=== PATIENT | female | born 1965 | race Caucasian/White ===

== ENCOUNTER 2017-10-12 14:00 | Outpatient (CLI) | payer BC ==
[~2017-10-12] VITALS: Ht 160 cm; Wt 70.3 kg
[~2017-10-12 14:00] MED LIST: MNTL10T PO; NFPRILOC40 PO; TPR25T PO; TRAM100T28 PO
[2017-10-12] MEDS ORDERED: MONT10TA24 PO (16:02)
[2017-10-12] MEDS ORDERED: OMEP40CA36 PO (16:02)
== END 2017-10-12 16:03 ==
LOC: PREOP 14:00
PROVIDERS: ATTEND Surgery
DX: Z01.818 Encounter for other preprocedural examination (principal); K21.9 Gastro-esophageal reflux disease without esophagitis; R11.0 Nausea; R13.10 Dysphagia, unspecified

== ENCOUNTER 2017-10-18 07:45 | Day surgery (SDC) | payer BC ==
[~2017-10-18] VITALS: Ht 160 cm; Wt 70.3 kg
[~2017-10-18 07:45] MED LIST changes: +MONT10TA24 PO; +OMEP40CA36 PO
--- OUTSIDE RECORDS SUMMARY | 2017-10-18 07:50 | XMS REPORT | Clinical Summary ---
Author Author [facility] Organization [facility] Address Unknown Phone Unavailable Care Team Providers Care Nursing Home Assistant Administrator Name Role Phone PCP Unavailable Source Comments Some departments are not documenting in the electronic medical record. If you do not see the information that you expected, contact Release of Information in the Health Information Management department at [phone] for further assistance in locating additional records.[facility] Allergies Active Allergy Reactions Severity Noted Date Comments Codeine UNKNOWN Low 05/26/2015 Hydrocodone VOMITING Low 07/20/2016 Morphine UNKNOWN Low 05/26/2015 Sulfa (Sulfonamide UNKNOWN Low 05/26/2015 Antibiotics) Current Medications Prescription Sig. Disp. Refills Start End Date Status Date omeprazole DR(+) Take 40 mg by mouth Active (PRILOSEC) 40 mg capsule daily. topiramate (TOPAMAX) 50 Take 50 mg by mouth twice Active mg tablet daily. montelukast (SINGULAIR) Take 10 mg by mouth at Active 10 mg tablet bedtime daily. FLUTICASONE PROPIONATE Insert into nose as Active (FLUTICASONE NA) directed. DOCOSAHEXANOIC ACID/EPA Take by mouth. Active (FISH OIL PO) DIPHENHYDRAMINE HCL Take by mouth. Active (BENADRYL PO) LACTOBACILLUS ACIDOPHILUS Take by mouth. Active (PROBIOTIC PO) Active Problems Problem Noted Date Abnormal finding on breast imaging 07/17/2016 Overview: Diagnosis: Abnormal finding on breast imaging History: Ms. Garber is a female who presented to the [facility] on 07/20/2016 at age 51 for a second opinion on outside breast imaging findings. Her screening mammograms in September 2015 showed a nodule in the left breast; diagnostic mammogram showed a nodular focus that was stable and ultrasound showed duct ectasia corresponding in the area of the mammogram finding. A 6 month follow-up was recommended. The follow-up mammogram in March 2016 showed the previously seen nodule density to have diminished and was nearly resolved. No further follow-up was recommended. Ms. Garber preferred to get a second opinion and called [facility] to be seen in the breast surgery clinic. Breast Imaging: Mammogram: Screening mammograms 09/16/15 ([facility]) showed mild fibroglandular densities. There were scattered, stable, bilateral nodular foci. In the left breast, there was a 4 mm new, relatively dense nodule with microlobulations and on associated calcifications. There were considered indeterminate and further evaluation with diagnostic mammogram and ultrasound were recommended. Left diagnostic mammogram 09/29/15 ([facility]) showed mild nodularity which was stable. The recently described nodular focus at 6:00, zone B appeared to be stable. Ultrasound showed probably benign nodular focus. BIRADS 3, 6 month follow-up diagnostic mammogram was recommended. Left diagnostic mammogram 03/30/16 ([facility]) showed mild nodularity in the central subareolar left breast, as previously seen. The nodular focus at 6:00, zone B is diminished and nearly resolved on today's study. No new architectural distortion, clustered calcifications, or enlarged lymph nodes were identified. BIRADS 2. Ultrasound: Left breast ultrasound 09/29/15 ([facility]) showed a few focal ectatic ducts at 6:00, 4 cm FTN corresponding with the density on mammogram. No suspicious masses or areas of distortion were seen. BIRADS 3, follow-up mammogram in 6 months was recommended. Pertinent PMH: Seasonal allergies, migraine headaches Family History: Negative for breast and ovarian cancer. Maternal grandfather with prostate cancer. Reproductive health: Age at Menarche: 11 Age at First Live : 20 Age at Menopause: unknown due to hysterectomy in 2007, ovaries remain intact : 3 Para: 3 : Yes, x 12 weeks with each child Physical Exam on Presentation: Normal clinical breast exam. Referred by: Self Surgeon: Dr. Ruth Osteoarthrosis, unspecified whether generalized or localized, forearm 2014 Family History Medical History Relation Name Comments Diabetes Maternal Aunt High Cholesterol Maternal Aunt Thyroid Disease Maternal Aunt Cancer-Prostate Maternal Grandfather High Cholesterol Maternal Grandfather Diabetes Maternal Uncle High Cholesterol Maternal Uncle Hypertension Maternal Uncle Diabetes Mother Migraines Mother Relation Name Status Comments Father Alive Maternal Aunt Alive Maternal Grandfather Maternal Uncle Alive Mother Social History Tobacco Use Types Packs/Day Years Used Date Never Smoker Alcohol Use Drinks/Week oz/Week Comments Yes 2 Glasses of 2.4 occ wine 1 Cans of beer 1 Standard drinks or equivalent Sex Assigned at Date Recorded Not on file Last Filed Vital Signs Vital Sign Reading Time Taken Blood Pressure 124/91 07/20/2016 11:17 AM CDT Pulse 74 07/20/2016 11:17 AM CDT Temperature 36.7 C (98.1 F) 07/20/2016 11:17 AM CDT Respiratory Rate 16 07/20/2016 11:17 AM CDT Oxygen Saturation 100% 07/20/2016 11:17 AM CDT Inhaled Oxygen - - Concentration Weight 74.4 kg (164 lb) 07/20/2016 11:18 AM CDT Height 160 cm (5' 3") 07/20/2016 11:18 AM CDT Body Mass Index 29.05 07/20/2016 11:18 AM CDT Plan of Treatment Health Maintenance Due Date Last Done Comments HEPATITIS C SCREENING 1963 PHYSICAL (COMPREHENSIVE) 1970 EXAM PERTUSSIS VACCINE 1974 TETANUS VACCINE 1980 CERVICAL CANCER SCREENING 1993 COLORECTAL CANCER 2013 SCREENING INFLUENZA VACCINE 06/05/2017 BREAST CANCER SCREENING 07/20/2017 07/20/2016 Results Not on filefrom Last 3 Months
--- OUTSIDE RECORDS SUMMARY | 2017-10-18 07:50 | XMS REPORT | Clinical Summary ---
Author Author User, [facility] Loreto Melo DO, FACP Address Unknown Phone Allergies, Adverse Reactions, Alerts Allergy Name Reaction Description Start Date Severity Status Provider NARCOTICS nausea/vomiting Critical Active Pooja Melo SULFA hives Critical Active Pooja Melo Conditions or Problems Problem Name Problem Code Onset Date Status Entry Date Provider Comment Standard Description Annotate HEALTH SCREENING V70.0 Resolved Pooja Melo Routine general medical examination at a health care facility ANEMIA NOS 285.9 Active Pooja Melo Anemia, unspecified FATIGUE 780.79 Active Pooja Melo Other malaise and fatigue COUGH 786.2 Active Pooja Melo Cough VITAMIN B12 DEFICIENCY 266.2 Active Pooja Melo Other B-complex deficiencies MIGRAINE VARIANT 346.20 Active Pooja Melo Variants of migraine, not elsewhere classified, without mention of intractable migraine, without mention of status migrainosus INSOMNIA 780.52 Active Pooja Melo Insomnia, unspecified Medication List Medication Instructions Start Date Stop Date Generic Name NDC Status Provider Patient Instruction ZOSTAVAX 84025 UNT/0.65ML SOLR 1 injection once to prevent Shingles ZOSTER VACCINE LIVE 16984915436 Active Lorie Main VITAMIN B-12 1000 MCG TABS 1 PO daily CYANOCOBALAMIN 82423843111 Active Pooja Melo MULTIVITAMINS TABS 1 PO QD MULTIPLE VITAMIN Active Pooja Melo VIVELLE-DOT 0.1 MG/24HR PTTW 1 patch every 4 days ESTRADIOL 88909609018 Active Pooja Melo MAXALT 10 MG TABS 1 PO daily and then 1 PO after 2 hrs prn migraines RIZATRIPTAN BENZOATE 75231512166 Active Pooja Melo PRILOSEC 40 MG CAP CR 1 PO daily OMEPRAZOLE 48122144757 Active Pooja Melo TRAMADOL HCL 50 MG TABS 2 PO at bedtime TRAMADOL HCL 12417134999 Active Pooja Melo SINGULAIR 10 MG TABS 1 PO QHS MONTELUKAST SODIUM 81034913323 Active Pooja Melo TOPAMAX 50 MG TABS 1 PO BID TOPIRAMATE 31590861776 Active Pooja Melo Vital Signs Date Name Value Unit Range Description blood pressure, diastolic - 8462-4 70 mm[Hg] BP green blood pressure, systolic - 8480-6 90 mm[Hg] BP sys pulse rate E&M - 8867-4 84 /min Heart rate respiratory rate E&M - 9279-1 14 /min Resp rate temperature E&M 98.6 [degF] Body temperature weight E&M - 3141-9 162 [lb_av] Weight Measured blood pressure, diastolic - 8462-4 78 mm[Hg] BP green blood pressure, systolic - 8480-6 120 mm[Hg] BP sys height E&M - 8302-2 63 [in_us] Bdy height pulse rate E&M - 8867-4 70 /min Heart rate respiratory rate E&M - 9279-1 14 /min Resp rate temperature E&M 98.6 [degF] Body temperature weight E&M - 3141-9 163 [lb_av] Weight Measured Diagnostic Results Date Name Value Unit Range Description Clinical Lists Update: CBC,CMP,FLP,TSH,Free T4,ESR,HgA1c - Chemistry Estimated Glomerular Filtration Rate (calc) 102 mL/min/1.73m2 glucose, plasma fasting 88 mg/dL albumin, serum 4.4 g/dL alkaline phosphatase, serum 56 U/L urea nitrogen, blood 12 mg/dL calcium, serum 9.0 mg/dL chloride, serum 107 mmol/L cholesterol, serum 204 mg/dL carbon dioxide, venous blood 24.0 mmol/L cholesterol/HDL ratio, serum, percent 3.2 anion gap, serum 12 sodium, serum 139 mmol/L triglyceride, serum, fasting 81 mg/dL bilirubin, serum, total 0.4 mg/dL alanine aminotransferase (SGPT), serum 13 U/L aspartate aminotransferase (SGOT), serum 11 U/L protein, total, serum 6.6 g/dL potassium, serum 4.1 mmol/L LDL cholesterol, serum 125 mg/dL thyroid stimulating hormone, serum 0.96 u[iU]/mL hemoglobin A1C, blood, as % of total hemoglobin 5.1 % HDL cholesterol, serum 63.0 mg/dL thyroxine, serum, free 0.54 ng/dL creatinine, serum 0.7 mg/dL Clinical Lists Update: CBC,CMP,FLP,TSH,Free T4,ESR,HgA1c - Hematology hemoglobin, blood 14.3 g/dL platelet count 298 10*3/mm3 erythrocyte (RBC) count 4.69 10*6/mm3 leukocyte count, blood 9.2 10*3/mm3 mean corpuscular volume, RBC 94 fL red blood cell distribution width 12.8 % hematocrit, blood 44 % erythrocyte sedimentation rate 22 mm/h Encounters Code Encounter Date Provider Facility CPT-46491 Ofc Vst, Est Level IV 20:17:18 CDT Pooja Melo DO, FACP Procedures Code Procedure Name Date Entry Date Standard Description CPT-82643 Douglas Phillips, ([id number]) 16:08:52 CDT
--- OUTSIDE RECORDS SUMMARY | 2017-10-18 07:50 | XMS REPORT | Continuity of Care Document ---
Author Author [facility] Organization [facility] Address Unknown Phone Unavailable Allergies Active Description Code Type Severity Reaction Onset Reported/Identified Relationship to Patient Clinical Status Yes SULFA/MORPHINE. SULFA/MORPHINE. Severe N/A 07/27/2014 Yes codeine [id number] Drug Allergy Unknown vomiting 10/12/2017 Yes hydrocodone [id number] Drug Allergy Unknown vomiting 10/12/2017 Yes morphine [id number] Drug Allergy Unknown vomiting 10/12/2017 Yes Sulfa (Sulfonamide Antibiotics) [id number] Drug Allergy Unknown hives 10/12/2017 Medications Problems Date Dx Coded Attending Type Code Diagnosis Diagnosed By 10/15/2017 JYOTHI DUBOIS, GILBERT Murillo Ot K21.9 GASTRO-ESOPHAGEAL REFLUX DISEASE WITHOUT 10/15/2017 JYOTHI DUBOIS, GILBERT Murillo Ot R11.0 NAUSEA 10/15/2017 JYOTHI DUBOIS, GILBERT Murillo Ot R13.10 DYSPHAGIA, UNSPECIFIED 10/15/2017 JYOTHI DUBOIS, GILBERT Murillo Ot Z01.818 ENCOUNTER FOR OTHER PREPROCEDURAL EXAMIN Procedures Results Encounters ACCT No. Visit Date/Time Discharge Status Pt. Type Provider Facility Loc./Unit Complaint [id number] 10/12/2017 14:00:00 2016 16:03:00 DIS Outpatient GILBERT ROE MD [facility] PREOP EGD [id number] 07/27/2014 10:36:00 2013 13:20:00 DIS Outpatient [id number] 07/23/2014 07:13:00 2013 23:59:59 CLS Outpatient [id number] 10/18/2017 07:45:00 ACT Outpatient GILBERT ROE MD [facility] ENDO GERD/NAUSEA/DYSPHAGIA
[2017-10-18] MEDS ORDERED: HURRICAINE EXT TUBE (BENZOCAINE) XX PRN (08:00)
[2017-10-18 08:07] VITALS: BP 129/87
[2017-10-18] MEDS: NS IV 500 ML 500 ML IV PRN ×2 (08:14→11:00)
[2017-10-18] MEDS ORDERED: fentaNYL INJECTION 100 MCG/2 ML AMP ONE (10:32)
[2017-10-18] MEDS ORDERED: HURRICAINE EXT TUBE (BENZOCAINE) ONE (10:32)
[2017-10-18] MEDS ORDERED: NS IV 500 ML 500 ML ONE (10:32)
[2017-10-18] MEDS ORDERED: MIDAZOLAM 2 MG/2 ML (VERSED) VIAL ONE ×3 (10:32)
--- NOTE | 2017-10-18 10:34 | History & Physicial ---
History of Present Illness History of Present Illness Reason for visit/HPI to undergo an upper endoscopy with possible balloon dilatation regarding symptoms of reflux disease with progressive dysphagia. Date of Admission 10/18/17 Date Seen by Provider: Oct 18, 2017 Time Seen by Provider: 10:33 I consulted on this patient on 10/18/17 10:32 Attending Physician Gilbert Roe MD Admitting Physician Pooja Melo DO Consult Allergies and Home Medications Allergies Coded Allergies: Sulfa (Sulfonamide Antibiotics) (Verified Allergy, Unknown, hives, 10/12/17 ) codeine (Verified Allergy, Unknown, vomiting, 10/12/17) hydrocodone (Verified Allergy, Unknown, vomiting, 10/12/17) morphine (Verified Allergy, Unknown, vomiting, 10/12/17) Home Medications Montelukast Sodium 10 Mg Tablet, 10 MG PO HS, (Reported) Omeprazole 40 Mg Capsule.dr, 40 MG PO HS, (Reported) Past Lkjlzoe-Iwyphb-Xqcssk Hx Patient Social History Marrital Status: Employed/Student: employed Alcohol Use: Rarely Uses Number of Drinks Today: 0 Recreational Drug Use: No Smoking Status: Never a Smoker Recent Foreign Travel: No Contact w/other who traveled: No Recent Hopitalizations: No Recent Infectious Disease Expo: No Seasonal Allergies Seasonal Allergies: Yes Surgeries Bladder Surgery, Hysterectomy, Tonsillectomy Cardiovascular No Neurological Yes Headaches /Migraines Gastrointestinal Gastroesophageal Reflux Musculoskeletal Arthritis Constitutional: no symptoms reported EENTM: no symptoms reported Respiratory: no symptoms reported Cardiovascular: no symptoms reported Gastrointestinal: see HPI Genitourinary: no symptoms reported Musculoskeletal: no symptoms reported Skin: no symptoms reported Psychiatric/Neurological: No Symptoms Reported Physical Exam Vital Signs Vital Sign - Last 12Hours 10/18/17 08:07 Temp 99.3 Pulse 87 Resp 16 B/P (MAP) 129/87 (101) Pulse Ox 93 O2 Delivery Room Air Capillary Refill : General Appearance: No Apparent Distress HEENT: Normal ENT Inspection Neck: Normal Inspection Respiratory: Lungs Clear Cardiovascular: Regular Rate, Rhythm Gastrointestinal: Non Tender, Soft Extremity: Normal Inspection Neurologic/Psychiatric: Alert, Oriented x3 Skin: Warm/Dry Assessment/Plan Assessment and Plan lady with long-standing symptoms of reflux disease and new onset of dysphagia. Reviewed in detail 7 upper endoscopy with possible balloon dilatation, should a stricture be found. If negative, esophageal manometry will follow Problems: GILBERT ROE MD Oct 18, 2017 10:34 am
[2017-10-18] MEDS: MIDAZOLAM 2 MG/2 ML (VERSED) VIAL IVP PRN ×3 (10:35→10:42)
--- NOTE | 2017-10-18 10:35 | Conscious Sedation/ASA ---
Conscious Sedation Pre-Proced Time Reviewed: 10:34 ASA Class: 2 Airway Mallampati Classification: ([place] appropriate class) I. II. III, IV Lungs Heart ASA score ASA 1: a normal healthy patient ASA 2: a patient with a mild systemic disease (mid diabetes, controlled hypertension, obesity ASA 3: a patient with a severe systemic disease that limits activity (angina , COPD, prior Myocardial infarction) ASA 4: a patient with an incapacitating disease that is a constant threat to life (CHF, renal failure) ASA 5: a moribund patient not expected to survive 24 hrs. (ruptured aneurysm) ASA 6: a declared brain patient whose organs are being harvested. For emergent operations, add the letter E after the classification Grade 1 Sedation Plan: Discussed options with patient/fam Note The patient is an appropriate candidate to undergo the planned procedure, sedation, and anesthesia. The patient immediately re-assessed prior to indication. GILBERT ROE MD Oct 18, 2017 10:35 am
[2017-10-18] MEDS: fentaNYL INJECTION 100 MCG/2 ML AMP IVP PRN ×2 (10:36→10:39)
--- NOTE | 2017-10-18 11:10 | Endo Procedure Record ---
Endo Procedure Report Date of Procedure Oct 18, 2017 Surgeon (s) GILBERT ROE MD Post Procedure/Op Diagnosis distal esophageal stricture. Multiple proximal gastric polyps. Procedure Performed EGD with antral biopsy for H. pylori Balloon dilatation of esophageal stricture Snare polypectomy of gastric polyps Description of Procedure Anesthesia Type: Conscious Sedation Specimen(s) collected/removed antral mucosa for H. pylori. gastric polyps Description of the Procedure Indictation for procedure: This lady came in for an upper endoscopy to evaluate symptoms of long-standing reflux disease with new onset of dysphagia. Informed consent was obtained after reviewing the procedure and the potential for esophageal balloon dilatation. Description of the procedure: She was placed in left lateral decubitus position and her vital signs were monitored. Conscious sedation was achieved using Versed and fentanyl. The flexible gastroscope was introduced down the esophagus , past the stomach, into the proximal duodenum. Findings Esophagus: Quite tortuous with the distal, peptic stricture. It was dilated to 20 mm with the balloon Stomach: Multiple polyps along the proximal body of the stomach, varying in diameter from 2-4 mm. Most of them were snared and retrieved using a Warner net collection device. An antral biopsy was obtained for Helicobacter status Duodenum normal She tolerated the procedure well and was taken back to the nursing area in a stable condition. Impression: Dysphagia due to a peptic stricture. Multiple, incidental gastric polyps. Biopsy results pending. Copies To: VARUN COPE XAVIER M MD Oct 18, 2017 11:10 am
--- NOTE | 2017-10-18 11:12 | Discharge Inst-Simple/Standard ---
Discharge Inst-Standard Discharge Medications New, Converted or Re-Newed RX: Other Patient Instructions/Follow Up Plan of Care/Instructions/FU: to increase omeprazole to twice a day. Follow-up with me in 2-3 weeks Activity as Tolerated: Yes Discharge Diet: No Restrictions GILBERT ROE MD Oct 18, 2017 11:12 am
[2017-10-18 11:25] VITALS: BP 115/86
[2017-10-18 11:55] VITALS: BP 113/76
[2017-10-18 12:33] VITALS: BP 113/76
== END 2017-10-18 12:33 | disposition home or self-care (01) ==
LOC: ENDO 07:45
PROVIDERS: ATTEND Surgery
DX: K22.2 Esophageal obstruction (principal); K21.9 Gastro-esophageal reflux disease without esophagitis; K31.7 Polyp of stomach and duodenum; G43.909 Migraine, unspecified, not intractable, without status migrainosus; Z79.899 Other long term (current) drug therapy
CPT/HCPCS: 88305

== ENCOUNTER 2018-01-21 06:17 | Outpatient (CLI) | payer BC ==
[~2018-01-21] VITALS: Ht 160 cm; Wt 70.3 kg
[2018-01-21] MEDS ORDERED: TOPI50TA37 PO (11:26)
== END 2018-01-21 11:28 ==
LOC: PREOP 06:17
PROVIDERS: ATTEND Surgery
DX: Z01.818 Encounter for other preprocedural examination (principal); K21.9 Gastro-esophageal reflux disease without esophagitis; R13.10 Dysphagia, unspecified

== ENCOUNTER → 2020-03-30 | Outpatient (CLI) | payer BC ==
[~2020-03-30] MED LIST changes: -MONT10TA24 PO; +MONT10TA26 PO; +OMEP40CA27 PO; -OMEP40CA36 PO; +TOPI50TA37 PO
== END ==
LOC: LABNPT 10:23
PROVIDERS: ATTEND Internal Medicine
DX: Z01.812 Encounter for preprocedural laboratory examination (principal)

== ENCOUNTER 2021-03-22 17:00 | Emergency (ER) | payer BC ==
[~2021-03-22] VITALS: Ht 160 cm; Wt 77.1 kg
[~2021-03-22 17:00] MED LIST changes: -MONT10TA26 PO; +MONT10TA32 PO
[2021-03-22] MEDS ORDERED: ONDANSETRON 4 MG/2 ML (SDV) Z0FRAN ONE (17:19)
[2021-03-22] MEDS ORDERED: ONDANSETRON 4 MG (ZOFRAN) ORAL DISSOLVE TAB PO ONE (17:30)
[2021-03-22 17:35] LABS: BILIRUBIN,URINE NEGATIVE (NEGATIVE); CLARITY,URINE CLEAR; COLOR,URINE YELLOW; GLUCOSE, URINE (UA) NEGATIVE (NEGATIVE); KETONES,URINE NEGATIVE (NEGATIVE); LEUKOCYTE ESTERASE ,URINE NEGATIVE (NEGATIVE); NITRITE,URINE NEGATIVE (NEGATIVE); PH,URINE 5.5 (5-9); PROTEIN,URINE NEGATIVE (NEGATIVE)
[2021-03-22 17:37] LABS: BACTERIA,URINE TRACE /HPF; SQUAMOUS EPITHELIAL CELL,UR RARE /HPF; WBC,URINE 0-2 /HPF
[2021-03-22 17:44] LABS: POTASSIUM 4.1 MMOL/L (3.6-5.0)
[2021-03-22] MEDS ORDERED: KETOROLAC 30 MG/ML VIAL IVP ONE ×2 (17:45→18:45)
[2021-03-22] MEDS ORDERED: ONDANSETRON 4 MG/2 ML (SDV) Z0FRAN IVP ONE (17:45)
--- NOTE | 2021-03-22 17:45 | ED Abdominal Pain ---
General Chief Complaint: Abdominal/GI Problems Stated Complaint: PAIN LEFT SIDE/NV History of Present Illness Date Seen by Provider: March 22, 2021 Time Seen by Provider: 17:28 Initial Comments Patient is a 56-year-old female who presents to the emergency department today with a chief complaint of left-sided abdominal pain and flank pain. Pain has been going on for about 6 days. She states she was seen by a nurse practitioner earlier and had an outpatient CAT scan done at [facility]. Patient has a his tory of kidney stones in the past. She complains of nausea and vomiting. She has been taking 800 mg of ibuprofen for pain her last dose was around 7 or 8:00 this morning. She states that she had a urinalysis done on Sunday that showed blood in her urine. She denies any abnormal vaginal discharge, she is status post hysterectomy. She has a feeling of constipation and and took some stool softeners and did an enema this morning but did not have any results from that. No fevers, chills. No real dysuria. Patient feels like she is "dribbling" urine. CT results from [facility] show a 4 x 8 mm calculus in the proximal third of the left ureter with mild hydronephrosis and proximal hydroureter. 2 punctate nonobstructing right renal calculi are also noted. No evidence of right-sided obstructive uropathy. All other review of systems reviewed and negative except as stated above. Timing/Duration: 5-6 Days Severity/Quality: Severe, Aching Location: LUQ, LLQ Radiation: Flank Associated Symptoms: Back Pain, Nausea/Vomiting Allergies and Home Medications Allergies Coded Allergies: Sulfa (Sulfonamide Antibiotics) (Verified Allergy, Unknown, hives, 10/12/17) codeine (Verified Allergy, Unknown, vomiting, 10/12/17) hydrocodone (Verified Allergy, Unknown, vomiting, 10/12/17) morphine (Verified Allergy, Unknown, vomiting, 10/12/17) Home Medications Cephalexin 500 Mg Tablet, 500 MG PO TID Prescribed by: ELIAS ISIDRO on 03/22/211854 Hydrocodone/Acetaminophen 1 Each Tablet, 1 TAB PO Q6H PRN for PAIN-MODERATE (5- 7) Prescribed by: ELIAS ISIDRO on 03/22/211914 Montelukast Sodium 10 Mg Tablet, 10 MG PO HS, (Reported) Omeprazole 40 Mg Capsule.dr, 40 MG PO HS, (Reported) Ondansetron 8 Mg Tab.rapdis, 8 MG PO Q8H Prescribed by: ELIAS ISIDRO on 03/22/211854 Tamsulosin HCl 0.4 Mg Cap, 0.4 MG PO DAILY Prescribed by: ELIAS ISIDRO on 03/22/211854 Topiramate 50 Mg Tablet, 50 MG PO HS, (Reported) Patient Home Medication List Home Medication List Reviewed: Yes Review of Systems Review of Systems Constitutional: see HPI EENTM: No Symptoms Reported Gastrointestinal: Abdominal Pain Genitourinary: Frequency Musculoskeletal: no symptoms reported Skin: no symptoms reported All Other Systems Reviewed Negative Unless Noted: Yes Past Qtqemeh-Piobfj-Awasut Hx Patient Social History Recent Hopitalizations: No Seasonal Allergies Seasonal Allergies: Yes Past Medical History Bladder Surgery, Hysterectomy, Tonsillectomy Cardiac: No Neurological: Yes Headaches /Migraines Gastroesophageal Reflux Arthritis Physical Exam Vital Signs Vital Signs - First Documented 03/22/21 17:10 Temp 37.8 Pulse 95 Resp 16 B/P (MAP) 140/96 (111) Pulse Ox 99 O2 Delivery Room Air Capillary Refill : Height/Weight/BMI Height: 5'3.00" Weight: 155lbs. 0.0oz. [id number]; 27.5 BMI Method: General Appearance: WD/WN, mild distress HEENT: normal ENT inspection Respiratory: lungs clear, normal breath sounds, no respiratory distress, no accessory muscle use Cardiovascular: regular rate, rhythm Gastrointestinal: soft, guarding (left lower quadrant, left flank; also with CVA tenderness), tenderness Extremities: normal range of motion, non-tender, normal inspection, no pedal edema Back: CVA tenderness (L) Neurologic/Psychiatric: alert, normal mood/affect, oriented x 3 Skin: normal color, warm/dry Progress/Results/Core Measures Results/Orders Lab Results Laboratory Tests Test 03/22/21 17:10 03/22/21 17:20 Range/Units Urine Color YELLOW Urine Clarity CLEAR Urine pH 5.5 5-9 Urine Specific [place] 1.025 H 1.016-1.022 Urine Protein NEGATIVE NEGATIVE Urine Glucose (UA) NEGATIVE NEGATIVE Urine Ketones NEGATIVE NEGATIVE Urine Nitrite NEGATIVE NEGATIVE Urine Bilirubin NEGATIVE NEGATIVE Urine Urobilinogen 0.2 < = 1.0 MG/DL Urine Leukocyte Esterase NEGATIVE NEGATIVE Urine RBC (Auto) 2+ H NEGATIVE Urine RBC NONE /HPF Urine WBC 0-2 /HPF Urine Squamous Epithelial Cells RARE /HPF Urine Crystals NONE /LPF Urine Bacteria TRACE /HPF Urine Casts NONE /LPF Urine Mucus SMALL H /LPF Urine Culture Indicated NO Sodium Level 137 135-145 MMOL/L Potassium Level 4.1 3.6-5.0 MMOL/L Chloride Level 103 98-107 MMOL/L Carbon Dioxide Level 23 21-32 MMOL/L Anion Gap 11 5-14 MMOL/L Blood Urea Nitrogen 14 7-18 MG/DL Creatinine 1.17 0.60-1.30 MG/DL Estimat Glomerular Filtration Rate 48 BUN/Creatinine Ratio 12 Glucose Level 102 70-105 MG/DL Calcium Level 10.0 8.5-10.1 MG/DL My Orders Orders - ELIAS ISIDRO MD Ondansetron Oral Dissolve Tab (Zofran (03/22/21 17:30) Ed Iv/Invasive Line Start (03/22/21 17:31) Basic Metabolic Panel (03/22/21 17:31) Abdomen/Kub 1view (03/22/21 17:31) Ondansetron Injection (Zofran Injectio (03/22/21 17:45) Ketorolac Injection (Toradol Injection) (03/22/21 17:45) Ketorolac Injection (Toradol Injection) (03/22/21 18:45) Ceftriaxone For Iv Use (Rocephin For I (03/22/21 18:45) Ns Iv 500 Ml (Sodium Chloride 0.9%) (03/22/21 19:00) Rx-Hydrocodone/Apap 5-325 Mg (Rx-Vicodin (03/22/21 20:00) Rx-Ondansetron Po (Rx-Zofran Po) (03/22/21 20:00) Medications Given in ED Current Medications Medications Dose Ordered Sig/Amna Route Start Time Stop Time Status Last Admin Dose Admin Acetaminophen/ Hydrocodone Bitart 1 ea Q6H PRN PO 03/22/21 20:00 03/22/21 20:10 DC 03/22/21 20:06 1 EA Ceftriaxone Sodium 1000 mg/ Sterile Water 10 ml @ 200 mls/hr ONCE ONCE IV 03/22/21 18:45 03/22/21 18:47 DC 03/22/21 18:54 200 MLS/HR Ketorolac Tromethamine 15 mg ONCE ONCE IVP 03/22/21 17:45 03/22/21 17:46 DC 03/22/21 17:45 15 MG Ketorolac Tromethamine 15 mg ONCE ONCE IVP 03/22/21 18:45 03/22/21 18:46 DC 03/22/21 18:50 15 MG Ondansetron HCl 8 mg ONCE ONCE IVP 03/22/21 17:45 03/22/21 17:46 DC 03/22/21 17:35 8 MG Vital Signs/I&O 03/22/21 03/22/21 17:10 19:46 Temp 37.8 37.8 Pulse 95 90 Resp 16 16 B/P (MAP) 140/96 (111) 134/86 (111) Pulse Ox 99 98 O2 Delivery Room Air Room Air Departure Communication (Admissions) Time/Spoke to Consulting Phy: 18:[address] Grajeda. Recommends another 15 mg of Toradol, a prescription for an antibiotic and some Flomax. He would like her to receive a gram of Rocephin here in the emergency department. He thinks that if we can get her pain managed that she can be discharged to follow-up in the office. He states that lithotripsy is not available for another 2 weeks as it was here today. Impression Primary Impression: Ureterolithiasis Disposition: 01 HOME, SELF-CARE Condition: Stable Departure-Patient Inst. Decision time for Depature: 18:23 Referrals: VARUN COPE DO (PCP) Primary Care Physician CAROLA GRAJEDA MD Patient Instructions: Kidney Stones in Adults Add. Discharge Instructions: Drink lots of fluids to stay well-hydrated. Take the Flomax daily as prescribed. Take the antibiotics 1 3 times a day for the next week. Nausea medications as needed. Please call and follow-up with Dr. Grajeda tomorrow. Return to the emergency department for any increased pain, fevers, nausea and vomiting that does not improve with nausea medicines at home or any other emergent concerning symptoms Take benadryl over the counter 2 pills every 6 hours if you are having to take a hydrocodone. this medication will make you sleepy. Scripts Hydrocodone/Acetaminophen (Hydrocodone-Acetamin 5-325 mg) 1 Each Tablet 1 TAB PO Q6H PRN for PAIN-MODERATE (5-7), #15 TAB Prov: ELIAS ISIDRO MD 03/22/21 Ondansetron (Ondansetron Odt) 8 Mg Tab.rapdis 8 MG PO Q8H for nausea, #15 TAB Prov: ELIAS ISIDRO MD 03/22/21 Cephalexin (Cephalexin) 500 Mg Tablet 500 MG PO TID, #21 TAB Prov: ELIAS ISIDRO MD 03/22/21 Tamsulosin HCl (Flomax) 0.4 Mg Cap 0.4 MG PO DAILY, #30 CAP Prov: ELIAS ISIDRO MD 03/22/21 ELIAS ISIDRO MD March 22, 2021 17:45
[2021-03-22 17:50] LABS: CREATININE SERUM 1.17 MG/DL (0.60-1.30)
[2021-03-22] MEDS ORDERED: CEPH500T PO ×2 (18:26→18:55)
[2021-03-22] MEDS ORDERED: TMSL.4C PO ×2 (18:26→18:55)
[2021-03-22] MEDS ORDERED: ONDA8TAB13 PO ×2 (18:28→18:55)
[2021-03-22] MEDS ORDERED: cefTRIAXone FOR IV USE 1,000 MG in WATER (STERILE) FOR INJECTION 10 ML IV ONE (18:45)
--- NOTE | 2021-03-22 18:51 | Diagnostic Imaging Report ---
Supine abdomen at 6:30 PM INDICATION: Hematuria, left flank pain. There are no prior studies available for comparison. There is no evidence for nephrolithiasis. However both kidneys are partially obscured by bowel gas and fecal material. There is no sign of a calculus along the expected paths of the ureters either. There is a faint 3-4 mm calcific like density low in the pelvis on the left however. This may merely be secondary to superimposition as opposed to a calculus. If further study is desired, then CT would be recommended. There is no mass or organomegaly appreciated. The bowel gas pattern is nonspecific. Surgical coils are seen overlying the right sacrum. The osseous structures are intact. IMPRESSION: 1. There is no clear evidence for nephrolithiasis or urolithiasis. The faint area of increased density in the left pelvis may be secondary to superimposition as opposed to a small calculus. Recommendations as above. Dictated by: Dictated on workstation # [id number]
[2021-03-22] MEDS ORDERED: ACHD5005 PO ×2 (18:55→19:15)
[2021-03-22] MEDS ORDERED: NS IV 500 ML 500 ML IV SCH (19:00)
[2021-03-22 19:46] VITALS: BP 134/86
[2021-03-22] MEDS ORDERED: RX-ONDANSETRON 4 MG ODT (ZOFRAN) PPK #4 PO STA (20:00)
== END 2021-03-22 20:09 | disposition home or self-care (01) ==
LOC: EDUNIT# 17:00 → ER 17:02
DX: N20.1 Calculus of ureter (principal); K21.9 Gastro-esophageal reflux disease without esophagitis; Z88.2 Allergy status to sulfonamides; Z88.5 Allergy status to narcotic agent; Z79.899 Other long term (current) drug therapy
CPT/HCPCS: 36415; 74018; 80048; 81000